=== PATIENT | female | born 1980 | race Caucasian/White ===

== ENCOUNTER 2019-08-14 18:26 | Emergency (ER) | payer OTHER ==
[~2019-08-14] VITALS: Ht 154.9 cm; Wt 93.8 kg
[2019-08-14 19:09] LABS: ABSOLUTE BASOPHILS 0.1 thou/uL (0.0-0.2); ABSOLUTE EOSINOPHILS 0.1 thou/uL (0.0-0.7); ABSOLUTE LYMPHOCYTES 1.9 thou/uL (0.8-5.3); ABSOLUTE MONOCYTES 0.6 thou/uL (0.0-1.2); ABSOLUTE NEUTROPHILS 8.2 thou/uL (1.6-8.1); EOSINOPHILS 0.5 %; HEMATOCRIT 37.9 % (37.0-47.0); HEMOGLOBIN 12.8 gm/dL (12.0-15.0); LYMPHOCYTES 17.7 %; MCH 29.6 pg (26.0-34.0); MCHC 33.7 g/dL (28.0-37.0); MCV 87.9 fL (80.0-100.0); MONOCYTES 5.6 %; MPV 6.8 fl. (7.2-11.1); NUCLEATED RBCS 0 /100WBC; PLATELET COUNT* 476 thou/uL (150-400); POLYS 75.2 %; RBC 4.31 mil/uL (4.20-5.00); WBC 10.9 thou/uL (4.0-11.0)
[2019-08-14 19:17] LABS: CALCIUM 9.7 mg/dL (8.5-10.1); CREATININE 0.8 mg/dL (0.6-1.3)
[2019-08-14 19:27] LABS: MAGNESIUM 2.1 mg/dL (1.8-2.4); TOTAL BILIRUBIN 0.2 mg/dL (<0.1-1.0); TOTAL PROTEIN 8.5 g/dL (6.4-8.2)
[2019-08-14] MEDS ORDERED: CARAFATE 1 GM TA1 GM PO (21:45)
[2019-08-14 22:03] VITALS: BP 123/73
--- NOTE | 2019-08-15 13:54 | EKG ---
[place] [address] ELECTROCARDIOGRAM REPORT Name: DEV LYONS Room: [facility]#: [id number] Admission: 08/14/19 Attend Phys: Discharge: 08/14/19 Date of : [birth year] Report #: [id number] THIS REPORT FOR: //name// [facility] ED Test Date: 2019-08-14 Test Time: 18:33:16 Pat Name: DEV LYONS Department: Room: Gender: F Datastage Developer: CHEN : 1980 Requested By: Nickolas Dennis Order Number: [id number] MD: Silvio Neil Measurements Intervals [place] Rate: 92 P: 43 OK: 133 QRS: 44 QRSD: 94 T: 56 QT: 348 QTc: 431 Interpretive Statements Sinus rhythm No previous ECG available for comparison Electronically Signed On 08-15-2019 13:54:30 WATER LEAK REPAIRER by Silvio Neil [email or web address] <ELECTRONICALLY SIGNED> By: Silvio Neil MD, [facility] 08/15/19 1354 [id number] [id number] Silvio Neil MD, FACC /EPI
== END 2019-08-14 22:05 | disposition home or self-care (01) ==
LOC: M.ERS 18:26
PROVIDERS: Emergency Medicine Emergency Medical Services
DX: R07.89 Other chest pain (principal)

== ENCOUNTER → 2019-08-14 | Outpatient (CLI) | payer OTHER ==
[~2019-08-14] MED LIST: CARAFATE 1 GM TA1 GM PO
== END ==
LOC: M.ULTRA 16:00
DX: D25.9 Leiomyoma of uterus, unspecified (principal)

== ENCOUNTER 2019-10-23 17:11 | Emergency (ER) | payer OTHER ==
[~2019-10-23] VITALS: Ht 165.1 cm; Wt 91.6 kg
[2019-10-23] MEDS ORDERED: ZANAFLEX4 MG PO (19:43)
[2019-10-23] MEDS ORDERED: NORCO 5-325 TA1 EAC1 PO (19:43)
[2019-10-23] MEDS ORDERED: NAPROSYN500 MG PO (19:43)
[2019-10-23] MEDS ORDERED: MEDROLDOSEPACK PO (19:43)
[2019-10-23 20:02] VITALS: BP 159/98
== END 2019-10-23 20:03 | disposition home or self-care (01) ==
LOC: M.ERS 17:11
DX: M51.36 Other intervertebral disc degeneration, lumbar region (principal); M54.41 Lumbago with sciatica, right side

== ENCOUNTER → 2019-11-05 | Outpatient (CLI) | payer OTHER ==
[~2019-11-05] MED LIST changes: +MEDROLDOSEPACK PO; +NAPROSYN500 MG PO; +NORCO 5-325 TA1 EAC1 PO; +ZANAFLEX4 MG PO
== END ==
LOC: M.PC 09:00
DX: M47.26 Other spondylosis with radiculopathy, lumbar region (principal); Z98.890 Other specified postprocedural states; M51.16 Intervertebral disc disorders with radiculopathy, lumbar region

== ENCOUNTER → 2019-11-07 | Outpatient (CLI) | payer OTHER | LOC: M.MRI 11:14 | DX: M47.816 Spondylosis without myelopathy or radiculopathy, lumbar region (principal); M48.062 Spinal stenosis, lumbar region with neurogenic claudication; M51.27 Other intervertebral disc displacement, lumbosacral region; M51.26 Other intervertebral disc displacement, lumbar region; M62.81 Muscle weakness (generalized) ==

== ENCOUNTER → 2019-11-10 | Outpatient (CLI) | payer OTHER | END | disposition home or self-care (01) | LOC: M.PC 01:32 | DX: M54.5 Low back pain (principal); M51.16 Intervertebral disc disorders with radiculopathy, lumbar region; M47.26 Other spondylosis with radiculopathy, lumbar region; Z98.890 Other specified postprocedural states; Z79.899 Other long term (current) drug therapy ==

== ENCOUNTER → 2019-11-24 | Outpatient (CLI) | payer OTHER | LOC: M.PC 02:22 | DX: M47.26 Other spondylosis with radiculopathy, lumbar region (principal); M51.16 Intervertebral disc disorders with radiculopathy, lumbar region ==

== ENCOUNTER 2020-03-13 21:42 | Inpatient (IN) | payer OTHER ==
[~2020-03-13] VITALS: Ht 152.4 cm; Wt 93.4 kg
[2020-03-13 21:53] VITALS: BP 120/70
[2020-03-13 23:09] LABS: ABSOLUTE BASOPHILS 0.1 thou/uL (0.0-0.2); ABSOLUTE EOSINOPHILS 0.4 thou/uL (0.0-0.7); ABSOLUTE LYMPHOCYTES 2.5 thou/uL (0.8-5.3); ABSOLUTE MONOCYTES 0.6 thou/uL (0.0-1.2); ABSOLUTE NEUTROPHILS 5.8 thou/uL (1.6-8.1); BASOPHILS 1.1 %; EOSINOPHILS 4.5 %; HEMATOCRIT 39.3 % (37.0-47.0); HEMOGLOBIN 13.5 gm/dL (12.0-15.0); LYMPHOCYTES 25.9 %; MCH 30.9 pg (26.0-34.0); MCHC 34.2 g/dL (28.0-37.0); MCV 90.3 fL (80.0-100.0); MONOCYTES 6.8 %; MPV 8.2 fl. (7.2-11.1); NUCLEATED RBCS 0 /100WBC; PLATELET COUNT* 545 thou/uL (150-400); POLYS 61.7 %; RBC 4.36 mil/uL (4.20-5.00); RDW-CV 13.1 % (10.5-14.5); WBC 9.5 thou/uL (4.0-11.0)
[2020-03-13 23:13] LABS: CALCIUM 8.6 mg/dL (8.5-10.1); CREATININE 0.8 mg/dL (0.6-1.3); POTASSIUM 4.3 mmol/L (3.5-5.1)
[2020-03-13 23:17] LABS: ALBUMIN 3.5 g/dL (3.4-5.0); TOTAL BILIRUBIN 0.4 mg/dL (<0.1-1.0); TOTAL PROTEIN 8.2 g/dL (6.4-8.2)
[2020-03-14 02:25] VITALS: BP 104/63
--- NOTE | 2020-03-14 02:25 | NUR ---
PT ADMITTED TO FLOOR PER CART ACCOMPANIED BY ER STAFF WITH BELONGINGS. ORIENTED TO ROOM AND CALL LITE. HISTORY OBTAINED AND ASSESSMENT PERFORMED, SEE ADMIT NOTES. PT DENIES PAIN OR NAUSEA AT PRESENT, STATES SHE JUST WANTS TO SLEEP NOW. AOX4, PLEASANT. CALL LITE IN EASY REACH. L WRIST SL. EDUCATED ON NPO STATUS AND VERBALIZES UNDERSTANDING. WILL CONTINUE TO MONITOR AND PROVIDE CARES ORDERED.
[2020-03-14 03:07] VITALS: BP 104/63
--- NOTE | 2020-03-14 05:26 | NUR ---
PT HAS SLEPT WELL WITHOUT COMPLAINTS SINCE ADMIT TO FLOOR.NPO, GI AND SURGERY TO CONSULT TODAY. Gareth LACKEY. ABLE TO USE CALL LITE AND MAKE NEEDS KNOWN.
[2020-03-14 07:45] VITALS: BP 120/77
[2020-03-14 13:17] LABS: ABSOLUTE BASOPHILS 0.1 thou/uL (0.0-0.2); ABSOLUTE EOSINOPHILS 0.2 thou/uL (0.0-0.7); ABSOLUTE LYMPHOCYTES 1.5 thou/uL (0.8-5.3); ABSOLUTE MONOCYTES 0.4 thou/uL (0.0-1.2); ABSOLUTE NEUTROPHILS 4.8 thou/uL (1.6-8.1); BASOPHILS 1.1 %; EOSINOPHILS 3.4 %; HEMATOCRIT 40.3 % (37.0-47.0); HEMOGLOBIN 13.4 gm/dL (12.0-15.0); LYMPHOCYTES 21.5 %; MCH 30.3 pg (26.0-34.0); MCHC 33.3 g/dL (28.0-37.0); MONOCYTES 6.4 %; MPV 7.7 fl. (7.2-11.1); NUCLEATED RBCS 0 /100WBC; POLYS 67.6 %; RBC 4.42 mil/uL (4.20-5.00); RDW-CV 13.3 % (10.5-14.5)
[2020-03-14 13:18] LABS: PLATELET COUNT* 459 thou/uL (150-400)
[2020-03-14 13:32] LABS: ALBUMIN 3.3 g/dL (3.4-5.0); CALCIUM 8.9 mg/dL (8.5-10.1); CREATININE 0.7 mg/dL (0.6-1.3); POTASSIUM 3.9 mmol/L (3.5-5.1); TOTAL BILIRUBIN 0.3 mg/dL (<0.1-1.0); TOTAL PROTEIN 7.6 g/dL (6.4-8.2)
[2020-03-14 17:30] VITALS: BP 128/72
--- NOTE | 2020-03-14 18:27 | NUR ---
PT A&OX4 VSS. PT IS UP AD NIEVES, GAIT STEADY. PLEASANT, NO C/O PAIN, NAUSEA OR VOMITING WHILE ON UNIT. PT WAS NPO AT BEGINNING OF SHIFT FOR PROCEDURE THIS AM. EGD NORMAL PER DR NICHOLS. SURGERY CONSULTED. DR BACK GAVE VERBAL ORDER TO ADVANCE DIET TO CLEAR LIQUIDS FOR DINNER, BUT BACK TO NPO AFTER MIDNIGHT FOR GALLBLADDER SX SUNDAY. PROCEDURE SCHEDULED FOR 1500. IV TO L WRIST PATENT, DRESSING C/D/I. PT REMAINS CONTINENT OF B/B. COVID SWAB SUBMITTED ORDERED FOR PROCEDURE. PT RESTS IN ROOM WITH CALL IGHT IN REACH. WILL CONTINUE TO MONITOR.
[2020-03-14 20:00] VITALS: BP 130/75
[2020-03-15 03:52] VITALS: BP 130/75
--- NOTE | 2020-03-15 05:31 | NUR ---
PT HAS DENIED PAIN OR NAUSEA THIS SHIFT. TOLERATING CLEAR LIQUIDS BEFORE MIDNIGHT. NPO SINCE MIDNIGHT IN ANTICIPATION OF LAP DAVE TODAY. LWRIST IVF INFUSING PER PUMP. UP AD NIEVES VOIDING WITHOUT DIFFICULTY. AOX4, ABLE TO USE CALL LITE AND MAKE NEEDS KNOWN.
[2020-03-15 06:29] LABS: HEMATOCRIT 38.3 % (37.0-47.0); HEMOGLOBIN 13.2 gm/dL (12.0-15.0); MCH 30.9 pg (26.0-34.0); MCHC 34.4 g/dL (28.0-37.0); MCV 89.6 fL (80.0-100.0); MPV 7.1 fl. (7.2-11.1); RBC 4.27 mil/uL (4.20-5.00); RDW-CV 13.2 % (10.5-14.5); WBC 6.9 thou/uL (4.0-11.0)
[2020-03-15 07:08] LABS: ALBUMIN 3.2 g/dL (3.4-5.0); CALCIUM 8.5 mg/dL (8.5-10.1); CREATININE 0.7 mg/dL (0.6-1.3); PHOSPHORUS* 3.4 mg/dL (2.5-4.9); POTASSIUM 4.1 mmol/L (3.5-5.1); TOTAL BILIRUBIN 0.4 mg/dL (<0.1-1.0); TOTAL PROTEIN 7.3 g/dL (6.4-8.2)
[2020-03-15 08:10] VITALS: BP 143/92
[2020-03-15 17:07] LABS: HEPATITIS B SURFACE AG Negative (Negative)
--- NOTE | 2020-03-15 18:31 | NUR ---
PT A&OX4 VSS. PT UP AD NIEVES, GAIT STEADY. PT NPO THIS AM FOR SCHEDULED SURGERY. IV TO L WRIST PATENT, DRESSING C/D/I. LR RUNNING AT 100ML/HR. PT TO PACU 1400. PT HAS DC ORDERS ON CHART FOR POTENTIAL TO DC FOLLOWING SURGERY. PT STILL HAS NOT RETURNED TO UNIT AT THIS TIME.
[2020-03-15 21:00] VITALS: BP 135/83
[2020-03-16 00:27] VITALS: BP 114/63
[2020-03-16 04:30] VITALS: BP 110/68
--- NOTE | 2020-03-16 05:44 | NUR ---
PATIENT ARRIVED ON FLOOR BACK FROM PACU POST LAP DAVE AT ABOUT 2100. PATIENT HAS 3 LAP SITES WITH DERMABOND. PATIENT WAS ABLE TO VOID ON HER OWN. IV REMAINS SALINE LOCKED. PATIENT WAS GIVEN PAIN MEDICINE ONCE WITH SHIFT. PATIENT SHOULD DISCHARGE HOME TODAY. WILL CONTINUE TO MONITOR.
[2020-03-16 07:30] VITALS: BP 141/76
[2020-03-16 09:59] VITALS: BP 141/76
[2020-03-16] MEDS ORDERED: OXYCODONE HCL 55 MG PO (10:02)
[2020-03-16] MEDS ORDERED: ACETAMINOPHEN500 MG PO (10:03)
--- NOTE | 2020-03-16 10:51 | NUR ---
PATIENT TOELRATED LOW FAT DIET FOR BREAKFAST. PATIENT STATED HER HEAD FELT HOT AFTER EATING, TEMP 99.6 AXILLARY, DR. TOVAR NOTIFIED AND STILL OK TO DC HOME. LAP SITES INTACT AND DRY. PATIENT UP AND SHOWERED WITHOUT DIFFICULTY. IV DC'D. VERBALIZES UNDESTANDING OF PAPEWORK AND SCRIPTS. PATIENT TAKEN OUT VIA WHEELCHAIR WITH ALL BELONGINGS.
--- NOTE | 2020-03-16 15:08 | OP ---
[address] [address] OPERATIVE REPORT Name: ELOY SAMPSONDEV DE JESUS Room: [address] IN .R.#: [id number] Admission: 03/14/20 Attend Phys: Kunal Robles MD Discharge: 03/16/20 Date of : [birth year] Report #: [id number] THIS REPORT FOR: //name// cc: Gallo Samule MD, Dean L. MD ~ THIS REPORT FOR: //name// CC: Kunal Samuel MD DICTATED BY: Bob Beasley DO DATE OF SERVICE: 03/15/2020 PREOPERATIVE DIAGNOSIS: Cholecystitis, cholelithiasis. POSTOPERATIVE DIAGNOSIS: Cholecystitis, cholelithiasis. SURGEON: Vikram Vega DO CAUSTIC ROOM ATTENDANT: Bob Beasley, PGY4 and Jake Rosas, PGY1. OPERATION: Laparoscopic cholecystectomy. ANESTHESIA: General and transversus abdominis plane block by Anesthesia. ESTIMATED BLOOD LOSS: 30 mL. SPECIMEN: Gallbladder. COMPLICATIONS: None. INDICATIONS: The patient is a 39-year-old female that presented to the Emergency Department with complaints of epigastric abdominal pain and vomiting. On workup, she was found to have multiple large gallstones and some possible inflammation surrounding the gallbladder. Upper endoscopy was unremarkable. Her history of present illness, exam, and imaging were consistent with cholecystitis. Risks and benefits of surgery were explained in detail. Risks of bleeding, infection, and damage to nearby structures including the common bile duct were explained. DESCRIPTION OF PROCEDURE: After informed consent was obtained, the patient was brought to the operating theater and placed in supine position. SCDs were on and running. Preoperative antibiotics were given. [place] [address] OPERATIVE REPORT Name: DEV STEPHENSON Room: [address] IN [facility].#: [id number] Admission: 03/14/20 Attend Phys: Kunal Robles MD Discharge: 03/16/20 Date of : [birth year] Report #: [id number] administered with an ET tube without complication. Preoperative bilateral transversus abdominis plane blocks were placed by Anesthesia. The patient was prepped and draped in the standard sterile fashion. A timeout was performed and all were in agreement . Infraumbilical vertical incision was made with an 11 blade and carried down to the fascia using blunt dissection. Fascia was incised using cautery and elevated with 2 Mel clamps. Peritoneum was bluntly entered with a finger. An initial attempt at peritoneal entry failed and there was some air placed into the preperitoneal space specifically within the falciform, which we later found. Once the peritoneum was bluntly entered and confirmed with a finger, the Jacques port was introduced and secured with 2-0 Vicryl stay sutures on either side of the fascia. Abdomen was insufflated. Brief exploration of the abdomen was undertaken. The stomach was dilated, so an OG was passed by anesthesia to decompress the stomach. The patient was positioned head up and right side up. A 5 mm port was placed in the epigastrium under direct visualization. Two additional ports were placed in the right upper quadrant under direct visualization. The gallbladder was then elevated. There were some omental adhesions that were taken down using cautery. The stomach and duodenum were adhesed to the gallbladder. There were obvious multiple large gallstones within the gallbladder. Dissection was carefully performed to reveal the Neelam's pouch freeing the adhesions to the duodenum and the stomach with care to stay away from these structures. Once these dropped down, a ductal structure was identified coming from Neelam's pouch using the suction remediation technician and extensive blunt dissection. This was tediously developed until it was apparent that the cystic duct was bent and adhesed to itself as well as tenting up the common bile duct. In the course of this dissection an extremely anterior and medial, common or right hepatic artery was readily visible within the surgical field. These structures were visible despite staying as high as possible on the gallbladder. Again extensive blunt dissection was used to develop the planes and identify the cystic duct and cystic artery. Once a critical view of safety was obtained with two and only two structures entering the gallbladder and adequate liver visible posterior to these structures Hem-o-damion clips were placed; two on the proximal cystic duct and one on the proximal cystic artery and one on the distal side of the duct and artery. The laparoscopic scissors were then used to divide the cystic duct and cystic artery between the proximal and distal clips . The gallbladder was then elevated again. The suction remediation technician was used to bluntly dissect free from some medial adhesive bands. Eventually these were taken down using cautery. The gallbladder was dissected free from the liver bed. Neelam's pouch had a tear in it from traction during the previous dissection, which was very far from the clips. An additional small rent was made in the gallbladder during dissection from the liver bed after which the plane was reconstituted and the gallbladder was removed in its entirety. It was placed within [place] [address] OPERATIVE REPORT Name: DEV STEPHENSON Room: 310-P [facility] IN [facility]#: [id number] Admission: 03/14/20 Attend Phys: Kunal Robles MD Discharge: 03/16/20 Date of : 78 Report #: [id number] and placed aside. The right upper quadrant was inspected. Cautery was used for hemostasis. The clips were visualized and intact. The right upper quadrant was thoroughly irrigated and suctioned until the fluid suction was clear. The trocars were removed under direct visualization and the abdomen was then desufflated. The Jacques trocar and specimen were removed through the umbilical incision. We did require further opening of the fascia and the skin incision to remove the gallbladder due to the size of the gallstones which were approximately 3 cm. The previous stay sutures were elevated and 0 Vicryl was used to run in a superior to inferior fashion with excellent coaptation of the fascia. This wound was then closed in layered fashion using 3-0 Vicryl and 4-0 Monocryl. Remainder of skin incisions were closed using 4-0 Monocryl. Wounds were then thoroughly irrigated and dressed with Dermabond. The patient was emerged from anesthesia and transferred to the PACU in stable condition. All counts were correct. <ELECTRONICALLY SIGNED> By: Vikram Vega DO 03/16/20 1508 1917 1953Jojaylen Vega DO /nt
--- NOTE | 2020-03-17 17:07 | PATH ---
[address] [address] PATHOLOGY RPT PROCEDURE Name: ASHLEY STEPHENSON Room: [address] IN M.R.#: [id number] Admission: 03/14/20 Date of : 78 Discharge: 03/16/20 Report #: [id number] Path Case #: [id number] [facility] Accession Number: [id number] . 01 Material submitted: . gallbladder - GALLBLADDER . 01 Clinical history: . Cholecystitis, cholelithiasis . 02 Diagnosis: "Gallbladder", cholecystectomy: - Chronic cholecystitis. - Cholelithiasis. (CLW:allen; 03/17/2020) MBR 03/17/2020 1156 Local . 02 Electronically signed: . Tika Pino MD, Pathologist NPI- [id number] . 01 Gross description: . The specimen is received in formalin, labeled "Aslhey Clemente, gallbladder". Received is a previously opened gallbladder measuring 10.3 x 3.2 x 2.0 cm in greatest dimensions displaying a najera-roberson, bile-stained serosal surface. Opening the specimen reveals a velvety, bile-stained mucosa with a gallbladder wall thickness of 0.1 cm. Calculi are present displaying a light brown and smooth to granular appearance, and no masses or lesions are noted grossly. Dog License Officer Supervisor sections, to include the proximal margin, are submitted in cassette A1. (CAA; 03/16/2020) QAC/QAC 03/16/2020 1621 Local . 02 Pathologist provided ICD-10: K80.10 . 02 CPT . 904770 Specimen Comment: A courtesy copy of this report has been sent to [phone] Specimen Comment: [phone], Specimen Comment: Report sent to ,DR RIOS / DR HOLLAND Performed at: [address] [id number] MD Rafal Crowley MD Phone: [phone] Performed at: 02 [place] [address] PATHOLOGY RPT PROCEDURE Name: ASHLEY STEPHENSON LIZA Room: [address] IN M.R.#: [id number] Admission: 03/14/20 Date of : [birth year] Discharge: 03/16/20 Report #: [id number] Path Case #: [id number] [address], [place] [id number] MD Dheeraj Mckeon MD Phone: [phone]
--- NOTE | 2020-03-22 11:05 | CON ---
[address] [address] CONSULTATION Name: ELOY SAMPSONDEVMAURICE DE JESUS Room: [address] IN M.R.#: [id number] Admission: 03/14/20 Attend Phys: Kunal Robles MD Discharge: 03/16/20 Date of : 78 Report #: [id number] THIS REPORT FOR: //name// cc: Gallo Samuel MD, Dean L. MD ~ THIS REPORT FOR: //name// CC: Kunal Samuel MD ____ ____ DATE OF SERVICE: 03/14/2020 REFERRING PHYSICIAN: Kunal Robles M.D. REASON FOR CONSULTATION: Abdominal pain. IMPRESSION: 1. Right upper quadrant pain radiating to her back suspicious for biliary colic -- suspect symptomatic cholelithiasis. 2. History of chronic acid reflux with recent nonsteroidal use -- evaluate for complicated reflux or peptic ulcer disease. RECOMMENDATIONS: Due to the fact the patient likely has symptomatic cholelithiasis and is at risk for having reflux damage or peptic ulcer disease, we will proceed with upper endoscopy today, and if unremarkable, we will proceed with laparoscopic cholecystectomy during this hospital stay. I have discussed the plans with the patient as well and she is agreeable to the same. HISTORY OF PRESENT ILLNESS: The patient is a very pleasant 39-year-old female who is originally from [facility] who has been having problems off and on for the last several weeks. She has had some burning epigastric pain over the right upper quadrant, which radiates to her back associated with nausea and vomiting. She does have problem with reflux as well for which she takes omeprazole and does not get any relief with the pain. She does get occasional nonsteroidals, but nothing on a regular basis. She was originally scheduled for an upper endoscopy with my partner, Dr. Al, this coming Sunday, but because the pain, she had to come to the hospital. She is now admitted to the hospital for further evaluation and treatment. She denies any dysphagia, odynophagia, or any problem with her bowels or bowel frequency. She denied any black stools, tarry stools, or [place] [id number] CONSULTATION Name: ELOY DEV SAMPSON Room: [address]#: [id number] Admission: 03/14/20 Attend Phys: Kunal Robles MD Discharge: 03/16/20 Date of : [birth year] Report #: [id number] HOME MEDICATIONS: None except for p.r.n. nonsteroidals and Tylenol. PAST MEDICAL AND SURGICAL HISTORY: Remarkable for tubal ligation, previous D and C, and a diskectomy. SOCIAL HISTORY: The patient does not smoke or drink. FAMILY HISTORY: Remarkable for gallstones in her mother. PHYSICAL EXAMINATION: GENERAL: A pleasant 39-year-old female who is awake and alert. CARDIOPULMONARY: Revealed a regular rate and rhythm. LUNGS: Clear. ABDOMEN: Soft. She was tender in the epigastric area. No rebound or guarding noted. LABORATORY DATA: From the revealed a white count of 7.0; hemoglobin 13.4; platelet count 459,000; MCV is 91; RDW is 13.3. Her sodium 141, potassium 3.9, chloride 106, and bicarbonate 30. Her BUN is 8, creatinine 0.7 for GFR of 93. Total bilirubin 0.3, alkaline phosphatase 112, AST is 52, and ALT is 82. IMAGING STUDIES: CT scan of the abdomen and pelvis performed on 03/14/2020 revealed diffuse fatty infiltration of the liver. She has multiple gallstones within the gallbladder with a large peripherally calcified stone in the more distal gallbladder measuring 2.4 cm. There was also may be some pericholecystic stranding around this plus some gas within the gallbladder. The spleen, adrenal glands, pancreas, and kidneys are unremarkable. Upper GI tract including esophagus was normal. She does have a uterine fibroid measuring 3.7 cm. Otherwise, the CT scan was unrevealing. Abdominal ultrasound performed revealed similar findings, multiple gallstones without any evidence for common duct dilation. It measured 4.6 mm. DISCUSSION: At the present time, since she has had some issues with reflux, taking nonsteroidals, we will proceed with EGD, and if negative, we will proceed with laparoscopic cholecystectomy sooner than later. I have discussed the plans with patient as well and she is agreeable to the same. <ELECTRONICALLY SIGNED> By: Baldemar Ruggiero DO 03/22/20 1105 1131 [id number] Ruggiero DO /nt
== END 2020-03-16 10:54 | disposition home or self-care (01) | DRG 418 ==
LOC: M.ERS 21:42 → M.3W 03-14 01:20 → M.TBA-ER 03-14 01:20 → M.3W 03-14 02:19
PROVIDERS: Internal Medicine; Internal Medicine Gastroenterology; Personal Emergency Response Attendant; ADMIT Internal Medicine; ATTEND Internal Medicine
PROC: 0DJ08ZZ Inspection of Upper Intestinal Tract, Via Natural or Artificial Opening Endoscopic (ICD-10-PCS; 2020-03-14)
PROC: 0FT44ZZ Resection of Gallbladder, Percutaneous Endoscopic Approach (ICD-10-PCS; principal; 2020-03-15)
DX: K80.10 Calculus of gallbladder with chronic cholecystitis without obstruction (principal); Z68.41 Body mass index [BMI] 40.0-44.9, adult; E66.01 Morbid (severe) obesity due to excess calories; K21.9 Gastro-esophageal reflux disease without esophagitis; R74.0 Nonspecific elevation of levels of transaminase and lactic acid dehydrogenase [LDH]; Z98.1 Arthrodesis status; Z79.891 Long term (current) use of opiate analgesic; Z79.899 Other long term (current) drug therapy; Z03.818 Encounter for observation for suspected exposure to other biological agents ruled out

== ENCOUNTER → 2020-12-23 | Outpatient (CLI) | payer OTHER ==
[~2020-12-23] MED LIST changes: +ACETAMINOPHEN500 MG PO; +OXYCODONE HCL 55 MG PO
== END ==
LOC: M.RAD 09:11
PROVIDERS: ATTEND Internal Medicine
DX: M79.672 Pain in left foot (principal)